=== PATIENT | male | born 1975 | race Caucasian/White ===

== ENCOUNTER 2021-10-20 15:35 | Outpatient (CLI) | payer BC | END 2021-10-20 15:36 | disposition home or self-care (01) | LOC: CSHULT 15:35 | PROVIDERS: ATTEND Family Medicine | DX: E03.9 Hypothyroidism, unspecified (principal); Z90.09 Acquired absence of other part of head and neck; E04.1 Nontoxic single thyroid nodule | CPT/HCPCS: 76536 ==